=== PATIENT | female | born 1975 | race African-American/Black ===

== ENCOUNTER 2016-11-29 16:47 | Emergency (ER) | payer BC ==
[~2016-11-29] VITALS: Ht 170.2 cm; Wt 75.0 kg
[~2016-11-29 16:47] MED LIST: BACTRIM DS 8001 TAB PO; CEFTIN250 M1 PO; CEPHALEXIN500 M1 PO; CIPRO 500MG TA500 MG PO; DROSPIRENONE; FLEXERIL 1010 MG/TAB PO; IBU-8800 MG PO; MOBIC7.5 M1 PO; MOTRIN 800800 MG/TAB PO; MVI; NAPROSYN500 MG PO; NO HOME MEDICATIONS; NORCO 325 MG-51 TAB PO; PYRIDIUM200 M1 PO; TUSS PO; VENTOLIN0.09 MG IH; VICODIN 5/5001 UDTAB PO; ZITHROMAX Z PA250 MG PO
[2016-11-29 16:53] VITALS: BP 166/103; PULSE 82; TEMP 98.2
[2016-11-29] MEDS ORDERED: AMOXICILLIN 50500 MG PO (17:32)
[2016-11-29] MEDS ORDERED: MOTRIN 800800 MG/TAB PO (17:32)
== END 2016-11-29 18:09 | disposition home or self-care (01) ==
LOC: COL.ER 16:47
DX: K04.7 Periapical abscess without sinus (principal); K08.89 Other specified disorders of teeth and supporting structures; K03.81 Cracked tooth
CPT/HCPCS: J1885